=== PATIENT | female | born 1960 | race African-American/Black ===

== ENCOUNTER 2016-04-05 13:54 | Emergency (ER) | payer OTHER, MEDICAID ==
[~2016-04-05] VITALS: Ht 152.4 cm; Wt 90.0 kg
[~2016-04-05 13:54] MED LIST: ALLO100 PO; BUSP5 PO; CLON-352 PO; DILTCD240 PO; FENO50TA PO; IBUP800 PO; INDO50 PO; LOVA20TA PO; METF500 PO; MONT10TA2 PO
[2016-04-05 13:56] VITALS: BP 177/95; PULSE 78; RESP 20; TEMP 97.7; O2SAT 97
[2016-04-05] MEDS ORDERED: DILT-64 PO (14:41)
[2016-04-05] MEDS ORDERED: BUSP5TAB PO (14:41)
[2016-04-05] MEDS ORDERED: ASPI81TA81 (14:41)
[2016-04-05] MEDS ORDERED: LORA-373 PO (14:41)
[2016-04-05] MEDS ORDERED: FENO50TA PO (14:41)
[2016-04-05] MEDS ORDERED: LOVA20TA PO (14:41)
[2016-04-05] MEDS ORDERED: METF500T PO (14:41)
--- NOTE | 2016-04-05 14:43 | PD ---
HPI Chief Complaint: Musculoskeletal Complaint Time Seen by Provider: 14:42 Travel History International Travel<30 days: No Contact w/Intl Traveler<30days: No Traveled to known affect area: No History of Present Illness HPI 55 year old female with history of gout presents to the ED for evaluation of bilateral arm pain. Patient states left arm upper arm pain started approximately 3 weeks ago. Pain is rated 8/10, worsened by use. Patient also complains of 3 day history of right elbow pain, swelling and warmth. Elbow pain worsened by range of motion. She can identify no acute trauma or overuse. She denies numbness, tingling, weakness or limitations to range of motion of the extremity. She denies radiation into the shoulder or neck. No treatment attempted at home. PFSH Past Medical History Hx Anticoagulant Therapy: Yes (asa 81) Arthritis: Yes (GOUT) Asthma: Yes Anxiety: Yes Cardiovascular Problems: Yes (htn) High Cholesterol: Yes Cerebrovascular Accident: Yes Diabetes: Yes Patient Takes Glucophage: Yes Diminished Hearing: No Gout: Yes Hypertension: Yes Neurologic: Yes (BELLS PALSY) Respiratory: Yes Immunizations Current: Yes Tetanus Vaccination: < 5 Years Influenza Vaccination: Yes ?: Not Menopausal: Yes : 1 Para: 1 Past Surgical History Hysterectomy: Yes Social History Alcohol Use: No Tobacco Use: No Substance Use: No Allergies-Medications (Allergen,Severity, Reaction): Coded Allergies: No Known Allergies (Unverified , 04/05/16) Reported Meds & Prescriptions Reported Meds & Active Scripts Active Prednisone 20 Mg Tab 40 Mg PO DIRECTED take 40 mg daily for 5 days. Take 20 mg daily for 2 days. Reported Lorazepam 0.5 Mg Tab 0.5 Mg PO DAILY PRN Aspir-81 (Aspirin) 81 Mg Tabdr Metformin (Metformin HCl) 500 Mg Tab 500 Mg PO DAILY With a meal Lovastatin 20 Mg Tab 20 Mg PO DAILY Tricor (Fenofibrate) 145 Mg Tab 145 Mg PO DAILY Takw with food. Diltiazem CD 24 HR 240 Mg Caper 240 Mg PO DAILY Buspirone (Buspirone HCl) 5 Mg Tab 5 Mg PO BID Review of Systems Except as stated in HPI: all other systems reviewed are Neg Physical Exam Narrative GENERAL: Well-nourished, well-developed obese black female in no acute distress. SKIN: Warm and dry. HEAD: Normocephalic. EYES: No scleral icterus. No injection or drainage. NECK: Supple, trachea midline. No JVD or lymphadenopathy. CARDIOVASCULAR: Regular rate and rhythm without murmurs, gallops, or rubs. 2+ DP and radial pulses bilaterally. RESPIRATORY: Breath sounds clear and equal bilaterally. No accessory muscle use. GASTROINTESTINAL: Abdomen soft, non-tender, nondistended. Active bowel sounds MUSCULOSKELETAL: No cyanosis, or edema. Left upper extremity: tender to palpation of the midshaft of the humerus. No limitations to range of motion or loss of strength. Right upper extremity: Right elbow is mildly warm and tender. No erythema or edema. Flexion and extension of the elbow elicits pain. 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 Sensation intact to light touch distally. Patient is ambulatory, is observed to walk with a normal gait. BACK: Nontender without obvious deformity. No CVA tenderness. Data Data Last Documented VS Vital Signs Date Time Temp Pulse Resp B/P Pulse Ox O2 Delivery O2 Flow Rate FiO2 04/05/16 13:56 97.7 78 20 177/95 97 Room Air Orders Elbow, Complete (4 Vws) (04/05/16 14:46) Humerus (Min 2vws) (04/05/16 14:46) Ice/Cold Pack (04/05/16 14:46) MDM Medical Decision Making Medical Screen Exam Complete: Yes Emergency Medical Condition: Yes Differential Diagnosis Gout flare versus septic arthritis versus musculoskeletal pain versus polyarticular gout versus other Narrative Course 55 year old female with history of DM and gout presents to the ED for evaluation of bilateral arm pain. Patient states left arm upper arm pain started approximately 3 weeks ago. Pain is rated 8/10, worsened by use. Patient also complains of 3 day history of right elbow pain, swelling and warmth. Elbow pain worsened by range of motion. She can identify no acute trauma or overuse. She denies numbness, tingling, weakness or limitations to range of motion of the extremity. She denies radiation into the shoulder or neck. Vitals reviewed. Physical exam reveals tenderness to palpation of the shaft of the left humerus as well as mild warmth and tenderness to palpation of the right elbow. Flexion and extension of the elbow elicits pain. Patient has 5/5 strength in the upper extremities, no loss of strength or limitations to range of motion. 2+ radial pulses bilaterally. Sensation intact to light touch distally. Humeral and elbow x-rays unremarkable per radiology read. I discussed the results of the x-rays with the patient. I believe this is a gout flare. Patient already takes colchicine and indomethacin. I prescribed stepdown steroid therapy. I offered the patient first dose here in the ED. However, after discussing the likelihood that the patient's blood sugars would spike with steroid treatment the patient opted to delay treatment. She declined first dose in the ED. She did take the prescription with her, however she stated she would like to speak to her primary care provider in the morning before initiating therapy. I feel this is reasonable. We discussed reasons to return to the ED. The patient indicated understanding of the instructions, is amenable to plan of care. She is stable and discharged home. 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 Take medications as prescribed. Follow-up with her primary care provider as discussed. Return to the ED for any urgent or emergent medical condition. Med/Other Pt SpecificInfo: Prescription(s) given Scripts Prednisone 20 Mg Tab40 Mg PO DIRECTED #12 TAB Ref 0 take 40 mg daily for 5 days. Take 20 mg daily for 2 days. Prov:Joshua Issa MD 04/05/16 Disposition: 01 DISCHARGE HOME Condition: Stable Radha Celis Apr 05, 2016 14:42
--- NOTE | 2016-04-05 15:19 | RADRPT ---
EXAM DATE/TIME: 04/05/2016 15:10 [facility] COMPARISON: CHEST PA & LAT, February 20, 2015, 3:20. INDICATIONS : Patient states no known injury. Pain in entire elbow. MEDICAL HISTORY : Hypertension. Diabetes mellitus type II. SURGICAL HISTORY : None. ENCOUNTER: Initial ACUITY: 1 day PAIN SCORE: 7/10 LOCATION: Right Elbow. FINDINGS: Multiple view examination of the right elbow demonstrates no soft tissue swelling, joint effusion, or fracture. The osseous structures are in normal alignment. Bony mineralization is normal. CONCLUSION: Unremarkable examination of the right elbow. A Lilian Quiñones MD on April 05, 2016 at 15:17 Board Certified Radiologist. This report was verified electronically.
--- NOTE | 2016-04-05 15:29 | RADRPT ---
EXAM DATE/TIME: 04/05/2016 15:06 [facility] COMPARISON: None. INDICATIONS : Patient states no known injury. MEDICAL HISTORY : Hypertension. Diabetes mellitus type II. SURGICAL HISTORY : None. ENCOUNTER: Initial ACUITY: 1 day PAIN SCORE: 5/10 LOCATION: Right Humerus. FINDINGS: Two view examination of the left humerus demonstrates no evidence of fracture or dislocation. Bony m ineralization is normal. The soft tissue structures are intact. CONCLUSION: Unremarkable examination of the left humerus. Lilian Quiñones MD on April 05, 2016 at 15:27 Board Certified Radiologist. This report was verified electronically.
[2016-04-05] MEDS ORDERED: PRED20 PO (15:39)
[2016-04-05] MEDS ORDERED: predniSONE 50 MG TAB PO ONE (15:45)
== END 2016-04-05 15:51 | disposition home or self-care (01) ==
LOC: NETRI 13:54
DX: M10.9 Gout, unspecified (principal); E78.00 Pure hypercholesterolemia, unspecified; E11.9 Type 2 diabetes mellitus without complications; I10 Essential (primary) hypertension; Z79.4 Long term (current) use of insulin; Z79.82 Long term (current) use of aspirin
CPT/HCPCS: 73060; 73080; 99283

== ENCOUNTER 2016-05-06 18:37 | Emergency (ER) | payer OTHER, MEDICAID ==
[~2016-05-06] VITALS: Ht 152.4 cm; Wt 95.0 kg
[~2016-05-06 18:37] MED LIST changes: -ALLO100 PO; +ASPI81TA81; -BUSP5 PO; +BUSP5TAB PO; -CLON-352 PO; +DILT-64 PO; -DILTCD240 PO; -IBUP800 PO; -INDO50 PO; +LORA-373 PO; -METF500 PO; +METF500T PO; -MONT10TA2 PO; +PRED20 PO
[2016-05-06 18:39] VITALS: BP 166/82; PULSE 78; RESP 16; TEMP 98.3; O2SAT 94
[2016-05-06] MEDS ORDERED: HYDR-3533 PO (19:29)
[2016-05-06] MEDS ORDERED: SILV1CRE80 TOPICAL (19:29)
[2016-05-06] MEDS ORDERED: ACETAMINOPHEN/HYDROcodone 325 MG/5 MG TAB PO ONE (19:30)
[2016-05-06] MEDS ORDERED: IBUPROFEN 600 MG TAB PO ONE (19:30)
[2016-05-06] MEDS ORDERED: SILVER SULFADIAZINE 1% CR 50 GM JAR TOPICAL ONE (19:30)
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
== END 2016-05-06 19:50 | disposition home or self-care (01) ==
LOC: NEPB 18:37
DX: T23.102A Burn of first degree of left hand, unspecified site, initial encounter (principal); M10.9 Gout, unspecified; J45.909 Unspecified asthma, uncomplicated; I10 Essential (primary) hypertension; E78.00 Pure hypercholesterolemia, unspecified; G51.0 Bell's palsy; Z86.73 Personal history of transient ischemic attack (TIA), and cerebral infarction without residual deficits; E11.9 Type 2 diabetes mellitus without complications; W40.1XXA Explosion of explosive gases, initial encounter; Y93.9 Activity, unspecified; Y92.9 Unspecified place or not applicable; Y99.9 Unspecified external cause status
CPT/HCPCS: 16000

== ENCOUNTER 2016-05-20 09:55 | Observation (INO) | payer OTHER, MEDICAID ==
[~2016-05-20] VITALS: Ht 152.4 cm; Wt 91.0 kg
[~2016-05-20 09:55] MED LIST changes: +HYDR-3533 PO; +SILV1CRE80 TOPICAL
[2016-05-20 09:56] VITALS: BP 158/82; PULSE 88; RESP 20; TEMP 98.1; O2SAT 96
[2016-05-20 10:10] VITALS: BP 138/73; PULSE 80; RESP 18; O2SAT 97
[2016-05-20] MEDS ORDERED: ALLO100T PO (10:10)
[2016-05-20] MEDS ORDERED: SODIUM CHLORIDE 0.9% FLUSH 5 ML FLUSH IVF PRN ×2 (10:15→13:00)
[2016-05-20] MEDS ORDERED: ASPIRIN 81 MG CHEW TAB PO ONE (10:15)
[2016-05-20 10:28] LABS: AUTOMATED NEUTROPHIL # 7.1 TH/MM3 (1.8-7.7); BASOPHIL # 0.1 TH/MM3 (0-0.2); BASOPHIL % 0.5 % (0.0-2.0); EOSINOPHIL # 0.2 TH/MM3 (0-0.4); EOSINOPHIL % 1.8 % (0.0-4.0); HEMO FLAGS DIFF FINAL; LYMPHOCYTE # 2.6 TH/MM3 (1.0-4.8); MEAN CELL VOLUME 84.4 FL (80.0-100.0); MEAN CORPUSCULAR HGB CONC 34.4 % (32.0-36.0); MONO % 7.4 % (0.0-8.0); NEUT % 66.3 % (16.0-70.0); PLATELET COUNT 329 TH/MM3 (150-450); RED CELL DISTRIBUTION WIDTH 15.3 % (11.6-17.2); WHITE BLOOD COUNT 10.8 TH/MM3 (4.0-11.0)
--- NOTE | 2016-05-20 10:34 | RADRPT ---
EXAM DATE/TIME: 05/20/2016 10:20 [facility] COMPARISON: CHEST PA & LAT, February 20, 2015, 3:20. INDICATIONS : Chest Pain MEDICAL HISTORY : Hypertension. Diabetes mellitus type II. SURGICAL HISTORY : None. ENCOUNTER: Initial ACUITY: 3 days PAIN SCORE: 4/10 LOCATION: Bilateral chest FINDINGS: PA and lateral views of the chest demonstrate the lungs to be symmetrically aerated without evidence of mass, infiltrate or effusion. The cardiomediastinal contours are unremarkable. Osseous structure s are intact. CONCLUSION: No evidence of acute cardiopulmonary disease. Rosas Vyas MD on May 20, 2016 at 10:32 Board Certified Radiologist. This report was verified electronically.
[2016-05-20 10:46] LABS: PROTHROMBIN TIME - PATIENT 11.3 SEC (9.8-11.6)
[2016-05-20 10:55] LABS: ALT (GPT) 19 U/L (10-53); ANION GAP 9 MEQ/L (5-15); AST (GOT) 19 U/L (15-37); BLOOD UREA NITROGEN 15 MG/DL (7-18); CHLORIDE 108 MEQ/L (98-107); GLOMERULAR FILTRATION RATE 81 ML/MIN (>89); POTASSIUM 3.9 MEQ/L (3.5-5.1); SODIUM (NA) 141 MEQ/L (136-145)
[2016-05-20 10:59] LABS: ALKALINE PHOSPHATASE 75 U/L (45-117); CREATINE KINASE 174 U/L (26-192); TOTAL BILIRUBIN ADULT 0.4 MG/DL (0.2-1.0)
[2016-05-20 11:12] LABS: CKMB 0.6 NG/ML (0.5-3.6)
[2016-05-20 11:16] VITALS: RESP 18; O2SAT 97
--- NOTE | 2016-05-20 12:00 | PD ---
HPI Chief Complaint: Chest Pain Time Seen by Provider: 10:05 Travel History International Travel<30 days: No Contact w/Intl Traveler<30days: No Traveled to known affect area: No History of Present Illness HPI Patient is a 55 year old female who comes in complaining of chest pain. She says the pain goes across her chest. She says the pain has been on and off for the past week. It was worse this morning, so she came in. She denies SOB, nausea, vomiting, cough, fevers. She says her pain does radiate to her back. PFSH Past Medical History Hx Anticoagulant Therapy: Yes (asa 81) Arthritis: Yes (GOUT) Asthma: Yes Anxiety: Yes Cardiovascular Problems: Yes (htn) High Cholesterol: Yes Cerebrovascular Accident: Yes Diabetes: Yes Patient Takes Glucophage: Yes (METFORMIN) Diminished Hearing: No Gout: Yes Hypertension: Yes Neurologic: Yes (BELLS PALSY) Respiratory: Yes Immunizations Current: Yes ?: Not Menopausal: Yes : 1 Para: 1 Past Surgical History Hysterectomy: Yes (TOTAL) Social History Alcohol Use: No Tobacco Use: No Substance Use: No Allergies-Medications (Allergen,Severity, Reaction): Coded Allergies: No Known Allergies (Unverified , 04/05/16) Reported Meds & Prescriptions Reported Meds & Active Scripts Active Lortab (Hydrocodone-Acetaminophen) 5-325 Mg Tab 1 Tab PO Q8HR PRN Silver Sulfadiazine Topical (Silver Sulfadiazine) 1 % Cream 1 Applic TOPICAL DAILY Prednisone 20 Mg Tab 40 Mg PO DIRECTED take 40 mg daily for 5 days. Take 20 mg daily for 2 days. Reported Allopurinol 100 Mg Tab 100 Mg PO DAILY Lorazepam 0.5 Mg Tab 0.5 Mg PO DAILY PRN Aspir-81 (Aspirin) 81 Mg Tabdr Metformin (Metformin HCl) 500 Mg Tab 500 Mg PO DAILY With a meal Lovastatin 20 Mg Tab 20 Mg PO DAILY Tricor (Fenofibrate) 145 Mg Tab 145 Mg PO DAILY Takw with food. Diltiazem CD 24 HR 240 Mg Caper 240 Mg PO DAILY Buspirone (Buspirone HCl) 5 Mg Tab 5 Mg PO BID Review of Systems Except as stated in HPI: all other systems reviewed are Neg General / Constitutional: No: Fever, Chills Cardiovascular: Positive: Chest Pain or Discomfort Gastrointestinal: No: Nausea, Vomiting, Abdominal Pain Musculoskeletal: No: Myalgias, Edema Skin: No Change in Pigmentation Neurologic: No: Weakness, Dizziness Physical Exam Narrative GENERAL: Awake and alert, in no acute distress. SKIN: Warm and dry. HEAD: Atraumatic. Normocephalic. EYES: Pupils equal and round. No scleral icterus. ENT: Mucous membranes pink and moist. NECK: Trachea midline. No JVD. CARDIOVASCULAR: Regular rate and rhythm. No murmur appreciated. RESPIRATORY: No accessory muscle use. Clear to auscultation. Breath sounds equal bilaterally. GASTROINTESTINAL: Abdomen soft, non-tender, nondistended. MUSCULOSKELETAL: No obvious deformities. No clubbing. No cyanosis. No edema. NEUROLOGICAL: Awake and alert. No obvious cranial nerve deficits. Motor grossly within normal limits. Normal speech. PSYCHIATRIC: Appropriate mood and affect; insight and judgment normal. Data Data Last Documented VS Vital Signs Date Time Temp Pulse Resp B/P Pulse Ox O2 Delivery O2 Flow Rate FiO2 05/20/16 11:16 18 97 Room Air 05/20/16 10:10 80 138/73 05/20/16 09:56 98.1 Orders Electrocardiogram (05/20/16 ) B-Type Natriuretic Peptide (05/20/16 10:12) Ckmb (Isoenzyme) Profile (05/20/16 10:12) Complete Blood Count With Diff (05/20/16 10:12) Comprehensive Metabolic Panel (05/20/16 10:12) Prothrombin Time / Inr (Pt) (05/20/16 10:12) Act Partial Throm Time (Ptt) (05/20/16 10:12) Troponin I (05/20/16 10:12) Ecg Monitoring (05/20/16 10:12) Bilateral Bp Monitoring (05/20/16 10:12) Iv Access Insert/Monitor (05/20/16 10:12) Oximetry (05/20/16 10:12) Aspirin Chew (Aspirin Chew) (05/20/16 10:15) Sodium Chloride 0.9% Flush (Ns Flush) (05/20/16 10:15) Chest, Pa & Lat (05/20/16 10:12) CKMB (05/20/16 10:12) CKMB% (05/20/16 10:12) Admit Order (Ed Use Only) (2/26/17 ) Labs Laboratory Tests Test 05/20/16 10:12 White Blood Count 10.8 TH/MM3 Red Blood Count 4.50 MIL/MM3 Hemoglobin 13.1 GM/DL Hematocrit 38.0 % Mean Corpuscular Volume 84.4 FL Mean Corpuscular Hemoglobin 29.0 PG Mean Corpuscular Hemoglobin 34.4 % Concent Red Cell Distribution Width 15.3 % Platelet Count 329 TH/MM3 Mean Platelet Volume 8.9 FL Neutrophils (%) (Auto) 66.3 % Lymphocytes (%) (Auto) 24.0 % Monocytes (%) (Auto) 7.4 % Eosinophils (%) (Auto) 1.8 % Basophils (%) (Auto) 0.5 % Neutrophils # (Auto) 7.1 TH/MM3 Lymphocytes # (Auto) 2.6 TH/MM3 Monocytes # (Auto) 0.8 TH/MM3 Eosinophils # (Auto) 0.2 TH/MM3 Basophils # (Auto) 0.1 TH/MM3 CBC Comment DIFF FINAL Differential Comment Prothrombin Time 11.3 SEC Prothromb Time International 1.0 RATIO Ratio Activated Partial 30.0 SEC Thromboplast Time Sodium Level 141 MEQ/L Potassium Level 3.9 MEQ/L Chloride Level 108 MEQ/L Carbon Dioxide Level 24.0 MEQ/L Anion Gap 9 MEQ/L Blood Urea Nitrogen 15 MG/DL Creatinine 0.88 MG/DL Estimat Glomerular Filtration 81 ML/MIN Rate Random Glucose 100 MG/DL Calcium Level 9.5 MG/DL Total Bilirubin 0.4 MG/DL Aspartate Amino Transf 19 U/L (AST/SGOT) Alanine Aminotransferase 19 U/L (ALT/SGPT) Alkaline Phosphatase 75 U/L Total Creatine Kinase 174 U/L Creatine Kinase MB 0.6 NG/ML Troponin I LESS THAN 0.02 NG/ML B-Type Natriuretic Peptide 3 PG/ML Total Protein 8.6 GM/DL Albumin 3.9 GM/DL [facility] Medical Decision Making Medical Screen Exam Complete: Yes Emergency Medical Condition: Yes Medical Record Reviewed: Yes Interpretation(s) ECG shows no signs of ST elevation or depression Differential Diagnosis ACS vs NSTEMI vs STEMI Narrative Course Patient is a 55-year-old female comes in complaining of chest pain. Exam shows no acute abnormalities. 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 Labs sent. Labs including first troponin are negative. Chest x-ray shows no acute abnormalities. Patient will be placed in chest pain center for further management. Given aspirin. Diagnosis Primary Impression: Atypical chest pain Admitting Information Admitting Physician Requests: Observation Clau Piña MD May 20, 2016 12:00
[2016-05-20] MEDS ORDERED: ACETAMINOPHEN 500 MG CPLT PO PRN (13:00)
[2016-05-20] MEDS ORDERED: NITROGLYCERIN 0.4 MG SL 25 TABS/BTL SL PRN (13:00)
[2016-05-20] MEDS ORDERED: ONDANSETRON HCL 4 MG/2 ML VIAL IV PRN (13:00)
--- NOTE | 2016-05-20 13:25 | EKG ---
Date Performed: 05/20/2016 Time Performed: 10:09:46 PTAGE: 55 years EKG: Sinus rhythm WITH FIRST DEGREE AV BLOCK MINIMAL VOLTAGE CRITERIA FOR LVH, CONSIDER NORMAL VARIANT ABNORMAL ECG PREVIOUS TRACING : 05/04/2015 00.17 No significant change from previous tracing noted. DOCTOR: Daniele Moraes Interpretating Date/Time 05/20/2016 13:25:02
[2016-05-20 14:00] VITALS: BP 162/80; PULSE 68; RESP 18; O2SAT 99
[2016-05-20 14:14] LABS: CREATINE KINASE 46 U/L (26-192)
[2016-05-20 14:24] VITALS: O2SAT 97
--- NOTE | 2016-05-20 16:28 | HHI.DCPOC ---
Discharge Care Plan Diagnosis: (1) Atypical chest pain Goals to Promote Your Health * To prevent worsening of your condition and complications * To maintain your health at the optimal level Directions to Meet Your Goals Take your medications as prescribed Follow your dietary instruction Follow activity as directed Keep your appointments as scheduled Take your immunizations and boosters as scheduled If your symptoms worsen call your PCP, if no PCP go to Urgent Care Center or Emergency Room Smoking is Dangerous to Your Health. Avoid second hand smoke Call the 24-hour hour crisis hotline for domestic abuse at Naomi Dobbs May 20, 2016 16:28
--- NOTE | 2016-05-20 16:49 | TR ---
Date Performed: 05/20/2016 Time Performed: 16:32:11 DOCTOR: Shashank Chase DRUG LIST: CLINICAL HISTORY: CHEST PAIN REASON FOR TEST: Chest pain REASON FOR ENDING: OBSERVATION: CONCLUSION: Sean protocol completed. Stopped sec to reaching target heart rate and leg fatigue. Maximum ZM=018 Target HR Achieved=86.0% Maximum XZ=099/68 Total Exercise Time=6:08. No ectopy. No re prod chest discomfort. No st t segments changes to sugg ischemia. Normal bp response. Good exercise t olerance. Recovery quick and unremarkable. COMMENTS: Conclusion: Normal treadmill exercise. No evidence of ischemia.
--- NOTE | 2016-05-20 17:16 | HHI.HP ---
HPI Primary Care Physician HECTOR Pagan Chief Complaint Chest pain History of Present Illness 55-year-old patient with diabetes, hypertension, and hyperlipidemia presents with an onset of chest pain after having an anxiety attack. Patient woke at 3 AM had an anxiety attack and one hour later developed substernal chest discomfort. Severity "mild.". Duration was a few minutes. No associated symptoms. No known precipitating or relieving factors. Chest discomfort was nonexertional. Pain is described as soreness that moves left to right substernal area. She has never had chest pain like this in the past. Review of Systems General: No fatigue,weakness, fever, chills, recent illness HEENT: No MAN, no vision changes CV: As stated above. No current chest pain. No palpitations, intermittent leg pain, or dizziness RESP: No SOB, cough, wheeze, asthma, history of or respiratory problems GI: No nausea, vomiting, bowel changes, diarrhea, constipation, pain, distention , melena, blood in the stool. intentional weight loss of 100 pounds over the last year. : No dysuria, urgency, frequency EXT: No lower leg edema, no paraesthesias MS: No discomfort or change in ROM NEURO: No change in memory, dizziness, difficulty with balance, LOC, motor/ sensory deficits PSYCH: No depression, history of anxiety attacks uses medications when necessary needed SKIN: No rashes, no concerning lesions Past Family Social History Allergies: Coded Allergies: No Known Allergies (Unverified , 04/05/16) Past Medical History Diabetes, hypertension, hyperlipidemia, gout, and anxiety Past Surgical History Hysterectomy Reported Medications Reported Allopurinol 100 Mg Tab 100 Mg PO DAILY Lorazepam 0.5 Mg Tab 0.5 Mg PO DAILY PRN Aspir-81 (Aspirin) 81 Mg Tabdr Metformin (Metformin HCl) 500 Mg Tab 500 Mg PO DAILY With a meal Lovastatin 20 Mg Tab 20 Mg PO DAILY Tricor (Fenofibrate) 145 Mg Tab 145 Mg PO DAILY Takw with food. Diltiazem CD 24 HR 240 Mg Caper 240 Mg PO DAILY Buspirone (Buspirone HCl) 5 Mg Tab 5 Mg PO BID Active Ordered Medications Current Medications Medications (Trade) Dose Ordered Sig/Yasmeen Route Start Time Stop Time Status Last Admin (Tylenol) 500 mg Q4H PRN PO 05/20/16 13:00 (Zofran Inj) 4 mg Q6H PRN IV 05/20/16 13:00 (Nitrostat Sl) 0.4 mg Q5M PRN SL 05/20/16 13:00 (Aspirin) 325 mg DAILY PO 05/21/16 09:00 Family History Noncontributory for early onset cardiovascular disease Social History Quit smoking tobacco 1 year ago, prior to deflating smoked one half pack cigarettes most of her adult life. No alcohol or illegal drug use Has known hypertension, diabetes, and hyperlipidemia, Walk daily, short distances Physical Exam Vital Signs Vital Signs Date Time Temp Pulse Resp B/P Pulse Ox O2 Delivery O2 Flow Rate FiO2 05/20/16 14:24 97 21 05/20/16 14:00 68 18 162/80 99 Room Air 05/20/16 11:16 18 97 Room Air 05/20/16 10:10 80 18 138/73 97 Room Air 05/20/16 10:06 84 18 97 Room Air 05/20/16 09:56 98.1 88 20 158/82 96 Room Air Physical Exam GENERAL: Alert WN, WD, NAD, pleasant, obese female HEAD: NC, AT EYES: Sclera clear, conjunctiva without injection, pupils equal and round ENT: Mucous membranes pink and moist NECK: Supple, no masses, trachea midline CV: RRR, without murmur, rub, gallop, no JVD, S1-S2 no S3-S4. No carotid or femoral bruits RESP: Clear lungs throughout bilateral, no crackles, wheeze, rhonchi, symmetrical chest rise, nonlabored, able to speak in full sentences ABD: Soft, NT, ND, no masses, positive bowel tones BACK: No CVAT, no scoliosis EXT: Pulses +24, no dependent edema MS: Normal tone 4 extremities, nontender, no obvious deformities, full range of motion NEURO: CN II through CN XII grossly intact, motor strength 5/5, gait WNL PSYCH: A+O 3, pleasant affect, appropriate speech, appropriate mood and affect , insight and judgment SKIN: Normal turgor, normal texture, no lesions, no rashes Laboratory Laboratory Tests Test 05/20/16 05/20/16 10:12 13:45 White Blood Count 10.8 Red Blood Count 4.50 Hemoglobin 13.1 Hematocrit 38.0 Mean Corpuscular Volume 84.4 Mean Corpuscular Hemoglobin 29.0 Mean Corpuscular Hemoglobin 34.4 Concent Red Cell Distribution Width 15.3 Platelet Count 329 Mean Platelet Volume 8.9 Neutrophils (%) (Auto) 66.3 Lymphocytes (%) (Auto) 24.0 Monocytes (%) (Auto) 7.4 Eosinophils (%) (Auto) 1.8 Basophils (%) (Auto) 0.5 Neutrophils # (Auto) 7.1 Lymphocytes # (Auto) 2.6 Monocytes # (Auto) 0.8 Eosinophils # (Auto) 0.2 Basophils # (Auto) 0.1 CBC Comment DIFF FINAL Differential Comment Prothrombin Time 11.3 Prothromb Time International 1.0 Ratio Activated Partial 30.0 Thromboplast Time Sodium Level 141 Potassium Level 3.9 Chloride Level 108 Carbon Dioxide Level 24.0 Anion Gap 9 Blood Urea Nitrogen 15 Creatinine 0.88 Estimat Glomerular Filtration 81 Rate Random Glucose 100 Calcium Level 9.5 Total Bilirubin 0.4 Aspartate Amino Transf 19 (AST/SGOT) Alanine Aminotransferase 19 (ALT/SGPT) Alkaline Phosphatase 75 Total Creatine Kinase 174 46 Creatine Kinase MB 0.6 Troponin I LESS THAN 0.02 LESS THAN 0.02 B-Type Natriuretic Peptide 3 Total Protein 8.6 Albumin 3.9 Result Diagram: 05/20/16 1012 05/20/16 1012 Imaging Last Impressions Chest X-Ray 05/20/16 1012 Signed Impressions: Service Date/Time: Friday, May 20, 2016 10:20 - CONCLUSION: No evidence of acute cardiopulmonary disease. Rosas Vyas MD Course EKGs 2 EKGs normal sinus rhythm with no st t seg changes Assessment and Plan Assessment and Plan #1 Chest pain-admitted to chest pain center. Ruled out with 2 EKGs and cardiac enzymes. He was seen and evaluated by Dr. Shashank Chase. Has agreed to an exercise stress test. Stress test completed was unremarkable with no signs of ischemia. Chest pain most likely musculoskeletal in nature. Instructed to use heating pad to area, may use [id number] ibuprofen or naproxen as needed for pain. #2 Hypertensioncontinue to monitor reorder home medications #3 Diabetes-Continue Metformin # Hyperlipidemia-continue lovastatin Naomi Dobbs May 20, 2016 17:15
[2016-05-20] MEDS ORDERED: SODIUM CHLORIDE 0.9% FLUSH 5 ML FLUSH IVF SCH (21:00)
[2016-05-21] MEDS ORDERED: ASPIRIN 325 MG TAB PO SCH (09:00)
--- NOTE | 2016-05-22 07:37 | EKG ---
Date Performed: 05/20/2016 Time Performed: 14:00:22 PTAGE: 55 years EKG: Sinus rhythm WITH FIRST DEGREE AV BLOCK ABNORMAL ECG Since PREVIOUS TRACING , no significant change noted PREVIOUS TRACIN05/20/2016 10.09 DOCTOR: Eulalia Hamilton Interpretating Date/Time 05/22/2016 07:35:37
== END 2016-05-20 17:12 | disposition home or self-care (01) ==
LOC: NEPE 09:55 → NEDA 12:33
DX: R07.89 Other chest pain (principal); F41.1 Generalized anxiety disorder; I10 Essential (primary) hypertension; R94.31 Abnormal electrocardiogram [ECG] [EKG]; E11.9 Type 2 diabetes mellitus without complications; E78.5 Hyperlipidemia, unspecified; E78.00 Pure hypercholesterolemia, unspecified; J45.909 Unspecified asthma, uncomplicated; M10.9 Gout, unspecified; Z86.73 Personal history of transient ischemic attack (TIA), and cerebral infarction without residual deficits
CPT/HCPCS: 71020; 80053; 82550; 82552; 83880; 84484; 85025; 85610; 85730; 93005; 93017; 99285; G0378

== ENCOUNTER 2016-09-30 17:15 | Emergency (ER) | payer OTHER, MEDICAID ==
[~2016-09-30 17:15] MED LIST changes: +ALLO100T PO
[2016-09-30 17:17] VITALS: BP 171/93; PULSE 76; RESP 16; TEMP 97.9; O2SAT 97
[2016-09-30 18:48] LABS: BLOOD, URINE NEG (NEG); COMMENT (UR) CULT NOT INDICATED; CULTURE IF INDICATED CULT NOT INDICATED; GLUCOSE,URINE NEG (NEG); KETONE, URINE NEG (NEG); NITRITE,URINE NEG (NEG); SQUAMOUS EPITHELIAL CELL URINE 1 /hpf (0-5); URINE COLOR YELLOW (YELLW/STRAW)
== END 2016-09-30 18:56 | disposition left against medical advice (07) ==
LOC: NED 17:15
DX: M54.9 Dorsalgia, unspecified (principal); Z53.21 Procedure and treatment not carried out due to patient leaving prior to being seen by health care provider
CPT/HCPCS: 81001; 99281

== ENCOUNTER 2017-03-08 10:15 | Emergency (ER) | payer OTHER, MEDICAID ==
[~2017-03-08 10:15] MED LIST changes: -DILT-64 PO; +DILT240C44 PO; -LORA-373 PO; +LORA0.5T PO
[2017-03-08 10:16] VITALS: BP 158/90; PULSE 96; RESP 14; TEMP 97.4; O2SAT 95
[2017-03-08] MEDS ORDERED: EXENINJ SQ (10:34)
[2017-03-08] MEDS ORDERED: INDO25CA PO (10:34)
[2017-03-08] MEDS ORDERED: CLAR10CA3 PO (11:02)
[2017-03-08] MEDS ORDERED: AMOX500C PO (11:02)
--- NOTE | 2017-03-08 11:02 | PD ---
HPI Chief Complaint: Cold / Flu Symptoms Time Seen by Provider: 10:44 Travel History International Travel<30 days: No Contact w/Intl Traveler<30days: No Traveled to known affect area: No History of Present Illness HPI The patient is a 56-year-old female who presents to the emergency department for frontal facial headache, significant nasal congestion with green drainage, postnasal drip, and a dry nonproductive cough. The patient's symptoms started one week ago. The patient complaining of congestion and nasal drainage with secondary postnasal drip. She then complained of a dry mostly nonproductive cough. She denies any chest pain, shortness breath, nausea, vomiting, diarrhea , abdominal pain, myalgias, arthralgias, or rash. The patient does have a history of sinusitis with similar symptoms. The headache is located mostly over the frontal sinuses with mild pressure over the maxillary sinuses. The patient's primary physician is Eva George. PFSH Past Medical History Hx Anticoagulant Therapy: Yes (asa 81) Arthritis: Yes (GOUT) Asthma: Yes Anxiety: Yes Cardiovascular Problems: Yes High Cholesterol: Yes Cerebrovascular Accident: Yes Diabetes: Yes Patient Takes Glucophage: Yes Diminished Hearing: No Gout: Yes Hypertension: Yes Neurologic: Yes (BELLS PALSY) Respiratory: Yes Immunizations Current: Yes Triglycerides - High: Yes ?: Not Menopausal: Yes : 1 Para: 1 Past Surgical History Surgical History: No Previous Surgery Hysterectomy: Yes (TOTAL) Social History Alcohol Use: No Tobacco Use: No Substance Use: No Allergies-Medications (Allergen,Severity, Reaction): Coded Allergies: No Known Allergies (Unverified Adverse Reaction, Unknown, 03/08/17) Reported Meds & Prescriptions Reported Meds & Active Scripts Active Reported Bydureon Inj (Exenatide) 2 Mg Vial 2 Mg SQ Q7D Indomethacin 25 Mg Cap 25 Mg PO TID Take with food, milk, or antacids to decrease stomach adverse effects. Allopurinol 100 Mg Tab 100 Mg PO DAILY Lorazepam 0.5 Mg Tab 0.5 Mg PO DAILY PRN Aspir-81 (Aspirin) 81 Mg Tabdr Metformin (Metformin HCl) 500 Mg Tab 500 Mg PO DAILY With a meal Lovastatin 20 Mg Tab 20 Mg PO DAILY Tricor (Fenofibrate) 145 Mg Tab 145 Mg PO DAILY Takw with food. Diltiazem CD 24 HR 240 Mg Caper 240 Mg PO DAILY Buspirone (Buspirone HCl) 5 Mg Tab 5 Mg PO BID Review of Systems Except as stated in HPI: all other systems reviewed are Neg General / Constitutional: No: Fever, Chills HENT: Positive: Headaches, Congestion Cardiovascular: No: Chest Pain or Discomfort Respiratory: Positive: Cough, No: Shortness of Breath Gastrointestinal: No: Nausea, Vomiting, Diarrhea, Abdominal Pain Musculoskeletal: No: Myalgias, Arthralgias Physical Exam Narrative GENERAL: Awake, alert, pleasant 56-year-old female who appears her stated age and is in no acute respiratory distress. SKIN: Focused skin assessment warm/dry. HEAD: Atraumatic. Normocephalic. EYES: Pupils equal and round. No scleral icterus. No injection or drainage. ENT: Mild tenderness over the frontal sinuses and maxillary sinuses bilateral. Inspection of the nose reveals bilateral enlarged and erythematous turbinates. Oropharynx reveals cobblestoning without erythema or exudate. TMs are translucent and EACs are clear. NECK: Trachea midline. No JVD. CARDIOVASCULAR: Regular rate and rhythm. No murmur appreciated. RESPIRATORY: No accessory muscle use. Clear to auscultation. Breath sounds equal bilaterally. MUSCULOSKELETAL: No obvious deformities. No clubbing. No cyanosis. No edema. NEUROLOGICAL: Awake and alert. No obvious cranial nerve deficits. Motor grossly within normal limits. Normal speech. PSYCHIATRIC: Appropriate mood and affect; insight and judgment normal. Data Data Last Documented VS Vital Signs Date Time Temp Pulse Resp B/P (MAP) Pulse Ox O2 Delivery O2 Flow Rate FiO2 03/08/17 10:16 97.4 96 14 158/90 (112) 95 MDM Medical Decision Making Medical Screen Exam Complete: Yes Emergency Medical Condition: Yes Medical Record Reviewed: Yes Differential Diagnosis Differential diagnosis includes sinusitis, upper respiratory infection, postnasal drip, bronchitis, pneumonia. Narrative Course The patient's history and physical examination is consistent with sinusitis. The patient will be placed on amoxicillin and Claritin, will avoid any decongestion secondary to history of hypertension. She is advised to continue taking her current nasal spray as needed. Return if symptoms worsen or progress and follow-up with her primary physician. Patient Instructions: General Instructions Additional Instructions: Medications as directed. Follow-up with your primary physician. Return if symptoms worsen or progress. Med/Other Pt SpecificInfo: Prescription(s) given Scripts Loratadine (Claritin) 10 Mg Cap 10 MG PO DAILY for Allergy Management for 10 Days, #10 CAP 0 Refills Prov: Joshua Issa MD 03/08/17 Amoxicillin (Amoxicillin) 500 Mg Cap 500 MG PO TID for Infection for 10 Days, CAP 0 Refills Prov: Joshua Issa MD 03/08/17 Disposition: 01 DISCHARGE HOME Condition: Stable Joshua Issa MD Mar 08, 2017 11:02
== END 2017-03-08 11:22 | disposition home or self-care (01) ==
LOC: NEPD 10:15
DX: J32.9 Chronic sinusitis, unspecified (principal); R51 Headache; I10 Essential (primary) hypertension; M10.9 Gout, unspecified; J45.909 Unspecified asthma, uncomplicated; F41.9 Anxiety disorder, unspecified; E78.00 Pure hypercholesterolemia, unspecified; E11.9 Type 2 diabetes mellitus without complications; Z86.73 Personal history of transient ischemic attack (TIA), and cerebral infarction without residual deficits
CPT/HCPCS: 99284

== ENCOUNTER 2017-04-05 20:58 | Emergency (ER) | payer MEDICARE, MEDICAID ==
[~2017-04-05] VITALS: Ht 152.4 cm; Wt 104.5 kg
[~2017-04-05 20:58] MED LIST changes: +AMOX500C PO; +CLAR10CA3 PO; +EXENINJ SQ; -HYDR-3533 PO; +INDO25CA PO; -PRED20 PO; -SILV1CRE80 TOPICAL
[2017-04-05 21:00] VITALS: BP 164/88; PULSE 77; RESP 14; TEMP 98.9; O2SAT 96
--- NOTE | 2017-04-06 11:57 | PD ---
Physical Exam Date Seen by Provider: Apr 05, 2017 Time Seen by Provider: 21:09 Narrative 56-year-old female presents to the emergency department for evaluation of sinus headache, nasal congestion, sore throat for 1 week. Current pain is 7/10. Data Data Last Documented VS Vital Signs Date Time Temp Pulse Resp B/P (MAP) Pulse Ox O2 Delivery O2 Flow Rate FiO2 04/05/17 21:00 98.9 77 14 164/88 (113) 96 MDM Supervised Visit with ALEXEI: No Narrative Course 56-year-old female presents to the emergency department for evaluation of cold symptoms for one week. Patient initially seen and evaluated in triage. Patient left AGAINST MEDICAL ADVICE before being transferred to medical [facility]. Diagnosis Primary Impression: Left against medical advice Additional Impression: Sore throat Disposition: 07 AGAINST MEDICAL ADVICE Jyotsna Cohen Apr 06, 2017 11:57
[2017-04-07] MEDS ORDERED: BENZ100 PO (18:57)
[2017-04-07] MEDS ORDERED: VENTAER INH (18:57)
[2017-04-07] MEDS ORDERED: AZIT250T3 PO (18:57)
[2017-04-07] MEDS ORDERED: PRED5TAB PO (18:59)
== END 2017-04-06 00:16 | disposition left against medical advice (07) ==
LOC: NED 20:58
DX: J02.9 Acute pharyngitis, unspecified (principal)
CPT/HCPCS: 99281

== ENCOUNTER 2017-04-07 16:16 | Emergency (ER) | payer MEDICAID, MEDICARE ==
[~2017-04-07] VITALS: Ht 152.4 cm; Wt 104.5 kg
[2017-04-07 16:19] VITALS: BP 138/75; PULSE 77; RESP 22; TEMP 98.7; O2SAT 98
[2017-04-07] MEDS ORDERED: AZIT250T3 PO (18:57)
[2017-04-07] MEDS ORDERED: VENTAER INH (18:57)
[2017-04-07] MEDS ORDERED: BENZ100 PO (18:57)
--- NOTE | 2017-04-07 18:58 | PD ---
HPI Chief Complaint: Cold / Flu Symptoms Time Seen by Provider: 18:28 Travel History International Travel<30 days: No Contact w/Intl Traveler<30days: No Traveled to known affect area: No History of Present Illness HPI 56y female with a history of diabetes and asthma presents emergency department complaining of productive cough, sore throat, runny nose for approximately 1 week. Patient states that she has had a productive cough with yellow sputum. States normally she gets sinus infections but this does not feel like one yet. Patient states she is tried multiple [id number] medications to include Mucinex this had not had not had significant relief. Patient has had sick contacts. Patient states she has felt feverish but denies chills. Denies nausea, vomiting or diarrhea. Denies shortness or breath or chest pain. Patient does not remember her last asthma exacerbation but as of this may be the start of one. PFSH Past Medical History Hx Anticoagulant Therapy: Yes (asa 81) Arthritis: Yes (GOUT) Asthma: Yes Anxiety: Yes Cardiovascular Problems: Yes High Cholesterol: Yes Cerebrovascular Accident: Yes Diabetes: Yes Patient Takes Glucophage: No Diminished Hearing: No Gout: Yes Hypertension: Yes Neurologic: Yes (BELLS PALSY) Respiratory: Yes Immunizations Current: Yes Triglycerides - High: Yes Menopausal: Yes : 1 Para: 1 Past Surgical History Surgical History: No Previous Surgery Hysterectomy: Yes Social History Alcohol Use: No Tobacco Use: No Substance Use: No Allergies-Medications (Allergen,Severity, Reaction): Coded Allergies: No Known Allergies (Unverified Adverse Reaction, Unknown, 03/08/17) Reported Meds & Prescriptions Reported Meds & Active Scripts Active Prednisone 5 Mg Tab 5 Mg PO DAILY 7 Days Azithromycin 250 Mg Tab 250 Mg PO DIRECTED Take 2 tabs (500 mg) on day 1 then 1 tab daily x 4 days. Ventolin Hfa 18 GM Inh (Albuterol Sulfate) 90 Mcg/Act Aer 2 Puff INH Q6H PRN Tessalon Perles (Benzonatate) 100 Mg Cap 100 Mg PO TID PRN 5 Days Use at night for cough Claritin (Loratadine) 10 Mg Cap 10 Mg PO DAILY 10 Days Amoxicillin 500 Mg Cap 500 Mg PO TID 10 Days Reported Bydureon Inj (Exenatide) 2 Mg Vial 2 Mg SQ Q7D Indomethacin 25 Mg Cap 25 Mg PO TID Take with food, milk, or antacids to decrease stomach adverse effects. Allopurinol 100 Mg Tab 100 Mg PO DAILY Lorazepam 0.5 Mg Tab 0.5 Mg PO DAILY PRN Aspir-81 (Aspirin) 81 Mg Tabdr Metformin (Metformin HCl) 500 Mg Tab 500 Mg PO DAILY With a meal Lovastatin 20 Mg Tab 20 Mg PO DAILY Tricor (Fenofibrate) 145 Mg Tab 145 Mg PO DAILY Takw with food. Diltiazem CD 24 HR 240 Mg Caper 240 Mg PO DAILY Buspirone (Buspirone HCl) 5 Mg Tab 5 Mg PO BID Review of Systems Except as stated in HPI: all other systems reviewed are Neg Physical Exam Narrative GENERAL: [-] SKIN: Focused skin assessment warm/dry. HEAD: Atraumatic. Normocephalic. EYES: Pupils equal and round. No scleral icterus. No injection or drainage. ENT: No nasal bleeding or discharge. Mucous membranes pink and moist. NECK: Trachea midline. No JVD. CARDIOVASCULAR: Regular rate and rhythm. No murmur appreciated. RESPIRATORY: No accessory muscle use. Clear to auscultation. Breath sounds equal bilaterally. GASTROINTESTINAL: Abdomen soft, non-tender, nondistended. Hepatic and splenic margins not palpable. MUSCULOSKELETAL: No obvious deformities. No clubbing. No cyanosis. No edema. NEUROLOGICAL: Awake and alert. No obvious cranial nerve deficits. Motor grossly within normal limits. Normal speech. PSYCHIATRIC: Appropriate mood and affect; insight and judgment normal. Data Data Last Documented VS Vital Signs Date Time Temp Pulse Resp B/P (MAP) Pulse Ox O2 Delivery O2 Flow Rate FiO2 04/07/17 19:39 04/07/17 19:08 97 21 04/07/17 16:19 98.7 77 22 Room Air Orders Orders Albuterol-Ipratropium Neb (Duoneb Neb) (04/07/17 19:00) Prednisone (Deltasone) (04/07/17 19:00) Sulfamet-Trimeth Ds 800-160 Mg (Bactrim (04/07/17 19:00) Prednisone (Deltasone) (04/07/17 19:30) [facility] Medical Decision Making Medical Screen Exam Complete: Yes Emergency Medical Condition: Yes Differential Diagnosis upper respiratory infection, influenza, asthma, bronchitis Narrative Course 56y female with a history of diabetes and asthma presents emergency department complaining of productive cough, sore throat, runny nose for approximately 1 week. Patient states that she has had a productive cough with yellow sputum. States normally she gets sinus infections but this does not feel like one yet. Patient states she is tried multiple [id number]-ryw-vugobji medications to include Mucinex this had not had not had significant relief. Patient has had sick contacts. Patient states she has felt feverish but denies chills. Denies nausea, vomiting or diarrhea. Denies shortness or breath or chest pain. Patient does not remember her last asthma exacerbation but as of this may be the start of one. Vital signs stable. Physical exam findings consistent with an upper respiratory infection with bronchitis versus asthma exacerbation. Lungs without rales, rhonchi or wheezing. Did not feel that a chest x-ray was necessary today. Because patient does have a history of asthma, I offered a DuoNeb for her symptom relief. States that she does feel better. Prednisone, DuoNeb, and Bactrim were administered in emergency department today. Antibiotics, inhaler, prednisone, Tessalon Perles for outpatient use. I advised use Tessalon Perles sparingly as coughing will continue to clear her lungs prevent further issues. I strongly advised patient follow-up with primary care physician. Patient to return to the emergency room for worsening or persistent symptoms. Diagnosis Primary Impression: Bronchitis Referrals: Primary Care Physician Additional Instructions: Follow-up the primary care physician within 2-3 days. If he developed increased shortness of breath or chest pain return to the emergency department. Take all medications as prescribed Scripts Prednisone (Prednisone) 5 Mg Tab 5 MG PO DAILY for 7 Days, #7 TAB 0 Refills Prov: Katt Brunner 04/07/17 Azithromycin (Azithromycin) 250 Mg Tab 250 MG PO DIRECTED for Infection, #6 TAB 0 Refills Take 2 tabs (500 mg) on day 1 then 1 tab daily x 4 days. Prov: Katt Brunner 04/07/17 Albuterol 18 GM Inh (Ventolin Hfa 18 GM Inh) 90 Mcg/Act Aer 2 PUFF INH Q6H Y for SHORTNESS OF BREATH, #1 INHALER 0 Refills Prov: Katt Brunner 04/07/17 Benzonatate (Tessalon Perles) 100 Mg Cap 100 MG PO TID Y for COUGH for 5 Days, CAP 0 Refills Use at night for cough Prov: Katt Brunner 04/07/17 Disposition: 01 DISCHARGE HOME Condition: Stable Katt Brunner Apr 07, 2017 18:58
[2017-04-07] MEDS ORDERED: PRED5TAB PO (18:59)
[2017-04-07] MEDS ORDERED: SULFAMETHOXAZOLE-TRIMETHOPRIM DS 800-160 MG TAB PO ONE (19:00)
[2017-04-07] MEDS ORDERED: predniSONE 10 MG TAB PO ONE (19:00)
[2017-04-07] MEDS ORDERED: RESP: ALBUTEROL 2.5 MG/IPRATROPIUM 0.5 MG NEB (SCH) NEB ONE (19:00)
[2017-04-07 19:08] VITALS: O2SAT 97
[2017-04-07] MEDS ORDERED: predniSONE 20 MG TAB PO ONE (19:30)
== END 2017-04-07 19:40 | disposition home or self-care (01) ==
LOC: NEPK 16:16
DX: J40 Bronchitis, not specified as acute or chronic (principal); E11.9 Type 2 diabetes mellitus without complications; J45.909 Unspecified asthma, uncomplicated; M10.9 Gout, unspecified; F41.9 Anxiety disorder, unspecified; E78.00 Pure hypercholesterolemia, unspecified; Z86.73 Personal history of transient ischemic attack (TIA), and cerebral infarction without residual deficits; I10 Essential (primary) hypertension; Z79.899 Other long term (current) drug therapy
CPT/HCPCS: 94664; 99284; J7512

== ENCOUNTER 2017-07-22 23:43 | Emergency (ER) | payer MEDICARE, MEDICAID ==
[~2017-07-22] VITALS: Ht 152.4 cm; Wt 105.0 kg
[~2017-07-22 23:43] MED LIST changes: +AZIT250T3 PO; +BENZ100 PO; +PRED5TAB PO; +VENTAER INH
[2017-07-22 23:46] VITALS: BP 213/93; PULSE 75; RESP 20; TEMP 97.2; O2SAT 100
[2017-07-23 00:09] VITALS: BP_SYST 180; BP_SYST 182; BP_DIAS 85; BP_DIAS 87; PULSE 76; RESP 18; O2SAT 98
--- NOTE | 2017-07-23 00:13 | PD ---
HPI Chief Complaint: Chest Pain Time Seen by Provider: 23:55 Travel History International Travel<30 days: No Contact w/Intl Traveler<30days: No Traveled to known affect area: No History of Present Illness HPI The patient is a 57 year old female who presents to the [facility] emergency department with a history of headache and chest pain that began 3 days ago. She reports that the symptoms began around the same time. She reports that she has had recent cough and congestion. Her cough is productive of clear sputum. She has a clear nasal discharge. Her headache is over her frontal sinuses. Her chest pain is on the right side of her anterior chest and is worse with coughing. She denies having any shortness of breath. She denies having any prior history of coronary artery disease, congestive heart failure, prior DVT or PE. The patient last had a stress test done last year. This was reportedly unremarkable. On review of systems otherwise, the patient denies having any known recent fevers, neck pain, abdominal pain, vomiting, diarrhea, urinary symptoms, or neurologic symptoms. PFSH Past Medical History Narrative Medical The patient's past medical history is significant for diabetes, hypertension, hyperlipidemia, gout, reactive airway with allergies, and anxiety. Hx Anticoagulant Therapy: Yes (asa 81) Arthritis: Yes (GOUT) Asthma: Yes Anxiety: Yes Cardiovascular Problems: Yes High Cholesterol: Yes Cerebrovascular Accident: Yes Diabetes: Yes Patient Takes Glucophage: Yes (07/22/2017 0900) Diminished Hearing: No Gout: Yes Hypertension: Yes Neurologic: Yes (BELLS PALSY) Respiratory: Yes Immunizations Current: Yes Triglycerides - High: Yes Tetanus Vaccination: < 5 Years Influenza Vaccination: Yes ?: Not Menopausal: Yes : 1 Para: 1 Past Surgical History Narrative Surgical The patient's past surgical history is significant for hysterectomy. Hysterectomy: Yes Social History Alcohol Use: No Tobacco Use: No (quit approximately 2 years ago.) Substance Use: No Allergies-Medications (Allergen,Severity, Reaction): Coded Allergies: No Known Allergies (Unverified Adverse Reaction, Unknown, 07/22/17) Reported Meds & Prescriptions Reported Meds & Active Scripts Active Ventolin Hfa 18 GM Inh (Albuterol Sulfate) 90 Mcg/Act Aer 2 Puff INH Q6H PRN Claritin (Loratadine) 10 Mg Cap 10 Mg PO DAILY 10 Days Reported Bydureon Inj (Exenatide) 2 Mg Vial 2 Mg SQ Q7D Indomethacin 25 Mg Cap 25 Mg PO TID Take with food, milk, or antacids to decrease stomach adverse effects. Allopurinol 100 Mg Tab 100 Mg PO DAILY Lorazepam 0.5 Mg Tab 0.5 Mg PO DAILY PRN Aspir-81 (Aspirin) 81 Mg Tabdr Metformin (Metformin HCl) 500 Mg Tab 500 Mg PO DAILY With a meal Lovastatin 20 Mg Tab 20 Mg PO DAILY Tricor (Fenofibrate) 145 Mg Tab 145 Mg PO DAILY Takw with food. Diltiazem CD 24 HR 240 Mg Caper 240 Mg PO DAILY Buspirone (Buspirone HCl) 5 Mg Tab 5 Mg PO BID Review of Systems Except as stated in HPI: all other systems reviewed are Neg General / Constitutional: No: Fever Eyes: No: Visual changes HENT: Positive: Rhinorrhea, Congestion, No: Headaches Cardiovascular: Positive: Chest Pain or Discomfort, No: Dyspnea on exertion Respiratory: Positive: Cough, No: Shortness of Breath Gastrointestinal: No: Nausea, Vomiting, Diarrhea, Abdominal Pain Genitourinary: No: Dysuria Musculoskeletal: No: Pain Skin: No Rash Neurologic: No: Weakness, Focal Abnormalities, Change in Mentation, Slurred Speech, Sensory Disturbance Psychiatric: No: Depression Endocrine: No: Polydipsia Hematologic/Lymphatic: No: Easy Bruising Physical Exam Narrative General: The patient is a well-developed well-nourished female no acute distress. Head and Neck exam: Head is normocephalic atraumatic. Sinuses: The patient reports sinus tenderness on palpation of her bilateral maxilla. Eyes: EOMI, pupils are equal round and reactive to light. Nose: Midline septum with pink mucous membranes Mouth: Dentition unremarkable. Moist mucus membranes. Posterior oropharynx is not erythematous. No tonsillar hypertrophy. Uvula midline. Airway patent. Neck: No palpable lymphadenopathy. No nuchal rigidity. No thyromegaly. Cardiovascular: Regular rate and rhythm without murmurs, gallops, or rubs. No pulse deficit to the extremities on simultaneous auscultation and palpation of her radial artery. The patient reports having right-sided chest wall tenderness on palpation. No step-off or crepitus. No erythema or ecchymosis. Lungs: Clear to auscultation bilaterally. No wheezes, rhonchi, or rales. Abdomen: Soft, without tenderness to palpation in all 4 quadrants of the abdomen. No guarding, rebound, or rigidity. Normal bowel sounds are audible. No tenderness on palpation of McBurney's point. Negative Lea sign. Extremities: No clubbing, cyanosis, or edema. 2+ pulses in all 4 extremities. No calf tenderness on palpation. Back: No spinous process tenderness to palpation. No costovertebral angle tenderness to palpation. Neurologic Exam: Grossly nonfocal. Skin Exam: No rash noted. Intact skin that is warm and dry. Data Data Last Documented VS Vital Signs Date Time Temp Pulse Resp B/P (MAP) Pulse Ox O2 Delivery O2 Flow Rate FiO2 07/23/17 01:32 72 18 163/75 (104) 97 Room Air 149/71 (97) 07/22/17 23:46 97.2 Orders Orders Electrocardiogram (07/23/17 00:25) Complete Blood Count With Diff (07/23/17 00:25) Comprehensive Metabolic Panel (07/23/17:) Creatine Kinase (Cpk) (07/23/17:25) Ckmb (Isoenzyme) Profile (07/23/17 00:25) Troponin I (07/23/17 00:25) B-Type Natriuretic Peptide (07/23/17:25) Lipase (07/23/17:25) Magnesium (Mg) (07/23/17 00:25) Chest, Single Ap (07/23/17:25) Iv Access Insert/Monitor (07/23/17:25) Ecg Monitoring (07/23/17:25) Oximetry (07/23/17:25) CKMB (07/23/17 00:24) CKMB% (07/23/17:24) Ketorolac Inj (Toradol Inj) (07/23/17 02:15) Guaifenesin Er (Mucinex Er) (07/23/17 02:15) Labs Laboratory Tests Test 07/23/17 00:24 White Blood Count 11.3 TH/MM3 Red Blood Count 4.26 MIL/MM3 Hemoglobin 12.1 GM/DL Hematocrit 36.3 % Mean Corpuscular Volume 85.2 FL Mean Corpuscular Hemoglobin 28.3 PG Mean Corpuscular Hemoglobin Concent 33.2 % Red Cell Distribution Width 15.3 % Platelet Count 339 TH/MM3 Mean Platelet Volume 8.8 FL Neutrophils (%) (Auto) 55.0 % Lymphocytes (%) (Auto) 32.7 % Monocytes (%) (Auto) 8.5 % Eosinophils (%) (Auto) 3.2 % Basophils (%) (Auto) 0.6 % Neutrophils # (Auto) 6.2 TH/MM3 Lymphocytes # (Auto) 3.7 TH/MM3 Monocytes # (Auto) 1.0 TH/MM3 Eosinophils # (Auto) 0.4 TH/MM3 Basophils # (Auto) 0.1 TH/MM3 CBC Comment DIFF FINAL Differential Comment Blood Urea Nitrogen 21 MG/DL Creatinine 0.94 MG/DL Random Glucose 111 MG/DL Total Protein 8.4 GM/DL Albumin 3.7 GM/DL Calcium Level 9.1 MG/DL Magnesium Level 2.0 MG/DL Alkaline Phosphatase 74 U/L Aspartate Amino Transf (AST/SGOT) 30 U/L Alanine Aminotransferase (ALT/SGPT) 22 U/L Total Bilirubin 0.2 MG/DL Sodium Level 141 MEQ/L Potassium Level 4.0 MEQ/L Chloride Level 109 MEQ/L Carbon Dioxide Level 25.3 MEQ/L Anion Gap 7 MEQ/L Estimat Glomerular Filtration Rate 74 ML/MIN Total Creatine Kinase 214 U/L Creatine Kinase MB 1.5 NG/ML Creatine Kinase MB % 0.7 % Troponin I LESS THAN 0.02 NG/ML B-Type Natriuretic Peptide 4 PG/ML Lipase 247 U/L MDM Medical Decision Making Medical Screen Exam Complete: Yes Emergency Medical Condition: Yes Medical Record Reviewed: Yes Differential Diagnosis Costochondritis, versus muscle strain, versus pneumonia, versus pulmonary embolism, versus acute coronary syndrome, versus bronchitis, versus sinusitis Narrative Course During the course of the patient's emergency department visit, the patient's history, examination, and differential diagnosis were reviewed with the patient. The patient was placed on a conveyor monitor with oximetry and frequent blood pressure monitoring. The patient had IV access obtained and blood work sent for analysis. The patient was initially provided Toradol 15 mg IV, guaifenesin 600 mg p.o. 1 The patient's laboratory studies were reviewed and remarkable for a white count of 11.3, hemoglobin 12.1, platelets 339 with monocytes 8.5, CMP is remarkable for chloride of 109, BUN 21, glucose 111, CPK 214, MB percent 0.7, troponin I less than 0.02, BNP is 4, lipase 247. Radiology studies were reviewed and remarkable for a chest x-ray that shows no acute cardiopulmonary disease. No pneumothorax. The patient's symptoms are most consistent with an upper respiratory infection, sinusitis that is likely viral in origin and will run its course on its own. The patient was given a prescription for guaifenesin. The patient is instructed to push fluids and get plenty of rest. The patient will be given a prescription for benzonatate capsules to take as needed for cough. The patient is instructed to take ibuprofen as needed for discomfort. The patient is resting comfortably and feels better, is alert and in no distress. The patient's results and examination findings were discussed with the patient. The repeat examination is unremarkable and benign. The history, exam, diagnostic testing, and current condition do not suggest any significant pathology to warrant further testing, continued ED treatment, admission, or surgical evaluation at this point. The vital signs have been stable. The patient does not have uncontrollable pain, intractable vomiting, or other significant symptoms. The patient's condition is stable and appropriate for discharge. The patient will pursue further outpatient evaluation with a primary care physician or other designated or consulting physician as indicated in the discharge instructions. The patient expressed understanding and was agreeable with this plan. Diagnosis Primary Impression: Upper respiratory infection Qualified Codes: J06.9 - Acute upper respiratory infection, unspecified Additional Impressions: Sinusitis, acute maxillary Qualified Codes: J01.00 - Acute maxillary sinusitis, unspecified Chest pain Qualified Codes: R07.9 - Chest pain, unspecified Referrals: Primary Care Physician 3 days Patient Instructions: Chest Pain (ED), General Instructions, Sinusitis (ED), Upper Respiratory Infection (ED) Med/Other Pt SpecificInfo: Prescription(s) given Scripts Benzonatate (Benzonatate) 200 Mg Cap 200 MG PO TID Y for COUGH, #12 CAP 0 Refills Prov: Shy Terry MD 07/23/17 Guaifenesin (Guaifenesin ER) 600 Mg Tab.er.12h 1 TAB PO Q12HR Y for NASAL CONGESTION for 5 Days Prov: Shy Terry MD 07/23/17 Disposition: 01 DISCHARGE HOME Condition: Stable Shy Terry MD July 23, 2017 00:13
[2017-07-23 00:39] VITALS: BP 153/77; PULSE 70; RESP 18; O2SAT 98
[2017-07-23 00:40] LABS: AUTOMATED NEUTROPHIL # 6.2 TH/MM3 (1.8-7.7); BASOPHIL # 0.1 TH/MM3 (0-0.2); BASOPHIL % 0.6 % (0.0-2.0); EOSINOPHIL # 0.4 TH/MM3 (0-0.4); EOSINOPHIL % 3.2 % (0.0-4.0); HEMATOCRIT 36.3 % (35.0-46.0); HEMOGLOBIN 12.1 GM/DL (11.6-15.3); LYMPH % 32.7 % (9.0-44.0); LYMPHOCYTE # 3.7 TH/MM3 (1.0-4.8); MEAN CELL VOLUME 85.2 FL (80.0-100.0); MEAN CORPUSCULAR HEMOGLOBIN 28.3 PG (27.0-34.0); MEAN CORPUSCULAR HGB CONC 33.2 % (32.0-36.0); MEAN PLATELET VOLUME 8.8 FL (7.0-11.0); MONO % 8.5 % (0.0-8.0); PLATELET COUNT 339 TH/MM3 (150-450); RED BLOOD COUNT 4.26 MIL/MM3 (4.00-5.30); RED CELL DISTRIBUTION WIDTH 15.3 % (11.6-17.2); WHITE BLOOD COUNT 11.3 TH/MM3 (4.0-11.0)
--- NOTE | 2017-07-23 00:54 | RADRPT ---
EXAM DATE/TIME: 07/23/2017 00:38 [facility] COMPARISON: CHEST SINGLE AP, December 18, 2014, 14:38. INDICATIONS : Chest pain. MEDICAL HISTORY : Hypertension. Diabetes mellitus type II. SURGICAL HISTORY : None. ENCOUNTER: Initial ACUITY: 1 day PAIN SCORE: 4/10 LOCATION: Bilateral chest FINDINGS: A single view of the chest demonstrates the lungs to be symmetrically aerated without evidence of mas s, infiltrate or effusion. The cardiomediastinal contours are unremarkable. Osseous structures are intact with a mild dextroscoliosis of the dorsal spine and associated marginal spurs. CONCLUSION: No acute cardiopulmonary process. Homero Flores MD on July 23, 2017 at 0:51 Board Certified Radiologist. This report was verified electronically.
[2017-07-23 01:02] LABS: ALKALINE PHOSPHATASE 74 U/L (45-117); ALT (GPT) 22 U/L (10-53); TOTAL BILIRUBIN ADULT 0.2 MG/DL (0.2-1.0); TOTAL PROTEIN 8.4 GM/DL (6.4-8.2); TROPONIN I LESS THAN 0.02 NG/ML (0.02-0.05)
[2017-07-23 01:12] LABS: ALBUMIN 3.7 GM/DL (3.4-5.0); AST (GOT) 30 U/L (15-37); BICARBONATE 25.3 MEQ/L (21.0-32.0); BLOOD UREA NITROGEN 21 MG/DL (7-18); CALCIUM 9.1 MG/DL (8.5-10.1); CHLORIDE 109 MEQ/L (98-107); CREATININE 0.94 MG/DL (0.50-1.00); GLOMERULAR FILTRATION RATE 74 ML/MIN (>89); GLUCOSE,RANDOM 111 MG/DL (74-106); SODIUM (NA) 141 MEQ/L (136-145)
[2017-07-23 01:32] VITALS: BP_SYST 149; BP_SYST 163; BP_DIAS 71; BP_DIAS 75; PULSE 72; RESP 18; O2SAT 97
[2017-07-23] MEDS ORDERED: guaiFENesin E.R. 600 MG TAB PO ONE (02:15)
[2017-07-23] MEDS ORDERED: KETOROLAC TROMETHAMINE 30 MG/ML (IVP) VIAL IV PUSH ONE (02:15)
[2017-07-23] MEDS ORDERED: GUAI600T34 PO (02:22)
[2017-07-23] MEDS ORDERED: BENZ1CAP51 PO (02:22)
--- NOTE | 2017-07-23 07:50 | EKG ---
Date Performed: 07/23/2017 Time Performed: 00:02:16 PTAGE: 57 years EKG: Sinus rhythm NORMAL ECG No significant change from prior electrocardiogram. DOCTOR: Abhijeet Chaudhary Interpretating Date/Time 07/23/2017 07:49:31
== END 2017-07-23 02:50 | disposition home or self-care (01) ==
LOC: NEPE 23:43
DX: J01.00 Acute maxillary sinusitis, unspecified (principal); R07.9 Chest pain, unspecified; E78.00 Pure hypercholesterolemia, unspecified; E11.9 Type 2 diabetes mellitus without complications; I10 Essential (primary) hypertension; M10.9 Gout, unspecified; Z79.4 Long term (current) use of insulin; Z79.899 Other long term (current) drug therapy; Z87.891 Personal history of nicotine dependence
CPT/HCPCS: 71045; 80053; 82550; 82552; 83690; 83735; 83880; 84484; 85025; 93005; 96374; 99285; J1885

== ENCOUNTER 2017-08-10 17:48 | Emergency (ER) | payer OTHER, MEDICAID ==
[~2017-08-10 17:48] MED LIST changes: -AMOX500C PO; -AZIT250T3 PO; -BENZ100 PO; +BENZ1CAP51 PO; +GUAI600T34 PO; -PRED5TAB PO
[2017-08-10 17:57] VITALS: BP 141/67; PULSE 70; RESP 18; TEMP 98.4; O2SAT 97
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
[2017-08-10] MEDS ORDERED: KETOROLAC TROMETHAMINE 60 MG/2 ML (IM) VIAL IM ONE (18:45)
[2017-08-10] MEDS ORDERED: LIDOCAINE HCL 5% PATCH T-DERMAL ONE (18:45)
[2017-08-10] MEDS ORDERED: ORPHENADRINE INJ 60 MG/2 ML AMP IM ONE (18:45)
[2017-08-10] MEDS ORDERED: CYCL10TA PO (19:19)
[2017-08-10] MEDS ORDERED: IBUP-232 PO (19:19)
[2017-08-10 19:26] VITALS: RESP 20
[2017-08-10 19:45] VITALS: BP 137/86
== END 2017-08-10 19:47 | disposition home or self-care (01) ==
LOC: NEPD 17:48
DX: S39.012A Strain of muscle, fascia and tendon of lower back, initial encounter (principal); E11.9 Type 2 diabetes mellitus without complications; I10 Essential (primary) hypertension; M10.9 Gout, unspecified; E78.5 Hyperlipidemia, unspecified; J45.909 Unspecified asthma, uncomplicated; F41.9 Anxiety disorder, unspecified; V89.2XXA Person injured in unspecified motor-vehicle accident, traffic, initial encounter; Z79.82 Long term (current) use of aspirin; Z79.84 Long term (current) use of oral hypoglycemic drugs; Z86.73 Personal history of transient ischemic attack (TIA), and cerebral infarction without residual deficits; Z86.69 Personal history of other diseases of the nervous system and sense organs
CPT/HCPCS: 96372; 99283; J1885; J2360